=== PATIENT | male | born 1970 | race Caucasian/White ===

== ENCOUNTER 2022-05-07 14:56 | Emergency (ER) | payer OTHER ==
[2022-05-07 15:10] VITALS: BP 132/81; PULSE 90; RESP 16; TEMP 98
[2022-05-07] MEDS ORDERED: DIPH,PERTUS(ACELL)TETVAC-LF 0.5 ML VIAL IM ONE (15:18)
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
[2022-05-07 16:20] LABS: Basophils % (A) 1 %; Eosinophils # (A) 0.1 k/uL (0-0.7); Eosinophils % (A) 1 %; HCT 45.2 % (39.0-53.0); HGB 14.8 gm/dL (13.0-17.5); Lymphocytes # (A) 1.4 k/uL (1.0-4.8); Lymphocytes % (A) 20 %; MCH 29.6 pg (25.0-35.0); MCHC 32.6 g/dL (31.0-37.0); MCV 90.7 fL (80.0-100.0); Mean Platelet Volume 8.5; Monocytes # (A) 0.4 k/uL (0-1.0); Monocytes % (A) 5 %; Neutrophils # (A) 5.2 k/uL (1.3-7.7); Neutrophils % (A) 72 %; Platelet Count 190 k/uL (150-450); RBC 4.99 m/uL (4.30-5.90); RDW 12.2 % (11.5-15.5); WBC 7.2 k/uL (3.8-10.6)
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
[2022-05-07 16:30] LABS: ALT 28 U/L (4-49); AST 34 U/L (17-59); African American GFR (CKD) >90 (>60 ml/min/1.73 sqM); Albumin 4.5 g/dL (3.5-5.0); Alcohol <10 mg/dL; Alkaline Phosphatase 73 U/L (38-126); Anion Gap 11 mmol/L; Blood Urea Nitrogen 16 mg/dL (9-20); Calcium 9.3 mg/dL (8.4-10.2); Carbon Dioxide 28 mmol/L (22-30); Chloride 100 mmol/L (98-107); Glucose 110 mg/dL (74-99); Non-African American GFR(CKD) >90 (>60 ml/min/1.73 sqM); Sodium 139 mmol/L (137-145); Total Bilirubin 1.1 mg/dL (0.2-1.3); Total Protein 6.8 g/dL (6.3-8.2)
[2022-05-07 16:33] LABS: Partial Thromboplastin Time 22.5 sec (22.0-30.0); Prothrombin Time 10.5 sec (9.0-12.0)
[2022-05-07] MEDS ORDERED: LIDOCAINE 1% INJ 10MG/ML (20 ML MDV) SQ ONE (18:11)
[2022-05-07 18:19] LABS: Amphetamine Screen,Urine Not Detected (NotDetected); Barbiturate Screen,Urine Not Detected (NotDetected); Benzodiazepines Screen,Urine Not Detected (NotDetected); Cocaine Screen,Urine Not Detected (NotDetected); Methadone Screen, Urine Not Detected (NotDetected); Opiate Screen,Urine Not Detected (NotDetected); Oxycodone Screen, Urine Not Detected (NotDetected); Phencyclidine Screen,Urine Not Detected (NotDetected); Tricyclic Antidepressant,Urine Not Detected (NotDetected); Urn Cannabinoid Scrn Not Detected (NotDetected)
== END 2022-05-07 19:00 | disposition home or self-care (01) ==
LOC: EC 14:56
DX: S09.90XA Unspecified injury of head, initial encounter (principal); T14.8XXA Other injury of unspecified body region, initial encounter; J45.909 Unspecified asthma, uncomplicated; Z91.010 Allergy to peanuts; Z91.09 Other allergy status, other than to drugs and biological substances; V89.2XXA Person injured in unspecified motor-vehicle accident, traffic, initial encounter
CPT/HCPCS: 36415; 86900; 86901; 80053; 83605; 84484; 85025; 85610; 85730; 86850; 80306; 80320; 72125; 70450; 74177; 90715; 10120; 90471; 99284; Q9967